=== PATIENT | female | born 1995 | race Caucasian/White ===

== ENCOUNTER 2017-02-09 02:06 | Emergency (ER) | payer OTHER ==
[2017-02-09 02:13] VITALS: TEMP 98.9
[2017-02-09] MEDS ORDERED: LACTATED RINGERS 2,000 ML IV ONE (02:53)
[2017-02-09] MEDS ORDERED: POTASSIUM CHLORIDE 10 MEQ TER PO ONE (04:29)
[2017-02-09] MEDS ORDERED: POTASSIUM CHLORIDE 10 MEQ TER ONE (04:31)
[2017-02-09 05:33] VITALS: BP 119/76; PULSE 69; RESP 20; O2SAT 100
== END 2017-02-09 05:15 | disposition home or self-care (01) ==
LOC: ED 02:06
DX: E86.0 Dehydration (principal)
CPT/HCPCS: 96365; 96366; 99282; 99283

== ENCOUNTER 2017-03-21 10:08 | Emergency (ER) | payer OTHER ==
[2017-03-21 10:56] LABS: APPEARANCE,URINE Cloudy; BILIRUBIN,URINE 1+ (NEGATIVE); COLOR,URINE Yellow; GLUCOSE, URINE (UA) NEGATIVE (NEGATIVE); KETONES,URINE NEGATIVE (NEGATIVE); LEUKOCYTE ESTERASE ,URINE 2+ (NEGATIVE); NITRATE,URINE NEGATIVE (NEGATIVE); OCCULT BLOOD,URINE 3+ (NEG-TRACE); PH,URINE 5.5; UROBILINOGEN,URINE 0.2 (0.2-1.0 EU)
[2017-03-21 11:15] VITALS: BP 135/88; PULSE 113; RESP 16; TEMP 97.6; O2SAT 97
[2017-03-21 11:21] LABS: ICTOTEST,URINE NEGATIVE (NEGATIVE)
[2017-03-21 11:22] LABS: WBC,URINE 100-120 (0-5AV/HPF)
== END 2017-03-21 12:00 | disposition home or self-care (01) ==
LOC: ED 10:08
DX: N39.0 Urinary tract infection, site not specified (principal)
CPT/HCPCS: 81001; 99282; 99284

== ENCOUNTER 2017-11-22 22:47 | Emergency (ER) | payer OTHER ==
[2017-11-22 23:02] VITALS: RESP 20; TEMP 97.7
[2017-11-22] MEDS ORDERED: KETOROLAC TROMETHAMINE 30 MG/ML SOL IM ONE (23:17)
[2017-11-22] MEDS ORDERED: DIAZEPAM 5MG/ML SOL IM ONE (23:17)
[2017-11-22] MEDS ORDERED: KETOROLAC TROMETHAMINE 30 MG/ML SOL ONE (23:24)
[2017-11-22] MEDS ORDERED: DIAZEPAM 5 MG TAB PO ONE (23:28)
[2017-11-22] MEDS ORDERED: DIAZEPAM 5 MG TAB ONE (23:29)
[2017-11-22 23:55] VITALS: O2SAT 99
[2017-11-23 00:17] VITALS: BP 130/82; PULSE 64
== END 2017-11-23 00:07 | disposition home or self-care (01) ==
LOC: ED 22:47
DX: S39.012A Strain of muscle, fascia and tendon of lower back, initial encounter (principal)
CPT/HCPCS: 96372; 99283; J1885; A9270-GY